=== PATIENT | male | born 1945 | race Caucasian/White ===

== ENCOUNTER 2016-03-07 17:06 | Outpatient (RCR) | payer MEDICARE, BC ==
[~2016-03-07] VITALS: Ht 165.1 cm; Wt 87.1 kg
[~2016-03-07 17:06] MED LIST: APIX2.5T2 PO; ATOR40TA59 PO; BUDE8.6S NS; ESCI10TA PO; FISH1200 PO; HYDR-3702 PO; LEVO175T2 PO; LSNP20T PO; MULT-954 PO; OMG1KC PO; TML.25OP OD; WARF6TAB PO; WARF6TAB3 PO; ZLP10T PO
[2016-03-07] MEDS: ENOXAPARIN 40 MG/0.4 ML (LOVENOX) SYR SC SCH (17:14)
[2016-03-08 16:59] VITALS: BP 133/70
[2016-03-08] MEDS: ENOXAPARIN 40 MG/0.4 ML (LOVENOX) SYR SC SCH (17:01)
== END 2016-06-05 | disposition home or self-care (01) ==
LOC: EUOP 03-08 16:48
PROVIDERS: ATTEND Family Medicine
DX: I82.401 Acute embolism and thrombosis of unspecified deep veins of right lower extremity (principal)
CPT/HCPCS: 96372; J1650

== ENCOUNTER → 2016-06-26 | Outpatient (CLI) | payer MEDICARE | LOC: RAD 09:15 | PROVIDERS: ATTEND Family Medicine | DX: M25.561 Pain in right knee (principal); M17.0 Bilateral primary osteoarthritis of knee | CPT/HCPCS: 73564 ==